=== PATIENT | male | born 1990 | race African-American/Black ===

== ENCOUNTER 2020-05-21 14:01 | Emergency (ER) | payer SELFPAY ==
[~2020-05-21] VITALS: Ht 170.2 cm; Wt 72.6 kg
--- NOTE | 2020-05-21 14:05 | Emergency Department Note ---
History of Present Illnes History of Present Illness Chief Complaint: chest pain History of Present Illness This is a 29 year old male with history of chronic back pain, who presents with the onset of chest pain that started this morning. Patient points to an area of the left mid chest, near the sternum, that is tender to touch, and is worse with movement of the upper body. Patient works as a hvac mechanical engineer changing oil, and he is constantly using his upper body to apply force in order to remove lug knots from the tires. He does not recall any specific injury. He last worked 2 days ago. He has not taken anything for the pain. The pain does not radiate, and he denies any associated nausea, dizziness, lightheadedness, palpitations, shortness of breath, or pleuritic chest pain. He denies any previous history of similar pain. Arrival Mode: Car Medical Accountant Required: No Onset (how long ago): hour(s) (8) Location: left, mid chest Quality: aching, pressure Radiation: Reports non-radiation Severity: moderate Onset quality: sudden (awoke with the pain this morning) Timing of current episode: constant Progression: unchanged Chronicity: new Context: Denies recent illness, Denies recent travel, Denies trauma/injury Relieving factors: none Exacerbating factors: movement (of upper body) Associated symptoms: Reports denies other symptoms; Denies cough, Denies diaphoresis, Denies fever/chills, Denies nausea/vomiting, Denies shortness of breath, Denies syncope, Denies weakness Treatments prior to arrival: none Past Medical/Family History Physician Review I have reviewed the patient's past medical and family history. Any updates have been documented here. Past Medical History Recent Fever: No Clinical Suspicion of Infectio: No New/Unexplained Change in Ment: No Past Medical History: Chronic Back Pain (back injections) Past Surgical History: None Social History Smoking Cessation: Current every day smoker (marijuana) Counseling Performed: Yes Any Illegal Drug Use: Yes (marijuana) Family History Family history of heart diseas: No Other Last Tetanus: unknown Any Pre-Existing Lines (PICC,: No Is patient up to date on immun: No Review of Systems Review of Systems Constitutional: Reports no symptoms; Denies chills, Denies fever EENTM: Reports no symptoms Cardiovascular: Reports chest pain (reproducible, left parasternal cp); Denies edema, Denies palpitations, Denies syncope Respiratory: Denies cough, Denies hemoptysis, Denies pain on inspiration, Denies pain with cough, Denies dyspnea, Denies dyspnea on exertion Gastrointestinal: Denies abdominal pain, Denies nausea, Denies vomiting Genitourinary: Denies dysuria, Denies frequency Musculoskeletal: Reports no symptoms Integumentary: Reports no symptoms Neurological: Reports no symptoms Psychological: Reports no symptoms Hematological/Lymphatic: Reports no symptoms Review of other systems: All other systems negative Physical Exam Related Data Vital signs reviewed: Yes Physical Exam CONSTITUTIONAL Constitutional: Present well-developed, Present well-nourished; Absent distressed, Absent ill appearing HENT HENT: Present normocephalic, Present atraumatic, Present oropharynx clear/moist, Present nose normal HENT L/R: Present left ext ear normal, Present right ext ear normal EYES Eyes: Reports PERRL, Reports conjunctivae normal NECK Neck: Present ROM normal, Present supple PULMONARY Pulmonary: Present effort normal, Present breath sounds normal; Absent respiratory distress CARDIOVASCULAR Cardiovascular: Present regular rhythm, Present heart sounds normal, Present intact distal pulses, Present capillary refill normal, Present normal rate, Present other (reproducible cp to the left of the mid-sternum, without crepitus,no erythema or warmth;); Absent murmur GASTROINTESTINAL Abdominal: Present soft, Present nontender, Present bowel sounds normal GENITOURINARY Genitourinary: Present exam deferred SKIN Skin: Present other (mobile, marble sized lipoma vs cyst that is nontender, and without erythema or fluctuance;) MUSCULOSKELETAL NEUROLOGICAL Neurological: Present alert, Present oriented x 3, Present no gross motor or sensory deficits PSYCHOLOGICAL Psychological: Present mood/affect normal, Present judgement normal Assessment & Plan Medical Decision Making MDM - Take the Naprosyn, as directed for pain and inflammation. If you do not get the Naprosyn, he may take ibuprofen 200 mg3 tablets together every 6 hours as needed. - Avoid heavy lifting or pulling with the upper body until symptoms resolve. - Return to the emergency room if you develop shortness of breath or worsening symptoms. Assessment & Plan Final Impression: (1) Acute costochondritis (2) Chest pain Depart Disposition: HOME, SELF-detention Meds Active Scripts Naproxen (NAPROXEN) 250 Mg Tablet, 500 MG PO BID for pain and inflammation, #30 TAB 0 Refills Prov:ALFONSO SCHUSTER MD 05/21/20 ALFONSO SCHUSTER MD May 21, 2020 14:05
[2020-05-21] MEDS ORDERED: NAPROXEN250 MG PO (15:01)
== END 2020-05-21 15:47 | disposition home or self-care (01) ==
LOC: FSED 14:35
DX: M94.0 Chondrocostal junction syndrome [Tietze] (principal); M54.9 Dorsalgia, unspecified; G89.29 Other chronic pain
CPT/HCPCS: 99282